=== PATIENT | male | born 1950 | race Caucasian/White ===

== ENCOUNTER → 2023-10-25 09:12 | Outpatient (REF) | payer MEDICARE, OTHER, SELFPAY | LOC: HWRCS 09:12 | PROVIDERS: ATTENDING PHYSICIAN Internal Medicine; FAMILY PHYSICIAN Family Medicine | DX: I65.21 Occlusion and stenosis of right carotid artery (principal); I10 Essential (primary) hypertension; G45.9 Transient cerebral ischemic attack, unspecified; I45.10 Unspecified right bundle-branch block | CPT/HCPCS: 93306 ==

== ENCOUNTER 2024-05-13 10:10 | Emergency (ER) | payer MEDICARE, OTHER, SELFPAY ==
[2024-05-13 10:13] VITALS: BP 193/95
--- NOTE | 2024-05-13 12:08 | ED.GENMED ---
History of Present Illness
General
Chief Complaint: Musculo-Skeletal Complaint
Time Seen by Provider: 05/13/24 10:50
History of Present Illness
History of Present Illness:
73-year-old male presents to the emergency department for evaluation of left flank pain after a fall 2 days ago. Fell on his patio onto concrete. Having increasing pain since that time. Pain is pleuritic and worse when attempting to sit up from a
supine position. Denies any ecchymosis. Not on blood thinners. No hematuria.
Past History
Past History
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 Hypertension, diabetes, colon cancer with colostomy and chemotherapy.)
ED Past Surgical History: Other (herniorrhaphy; rectal cancer resection)
Social History
Tobacco: Non-smoker
Alcohol: None
Drug: None
Personal:
Living: with family
Employment: Retired
Family History
Family History: Hypertension
Review of Systems
Review of Systems
Allergies reviewed?: Yes
All Other Systems: ROS reviewed and negative except as documented in HPI and ROS
Phy Exam
Physical Exam
Physical Exam:
GEN: Well appearing, NAD, WDWN
HEENT: Oral mucosa moist, no scleral icterus
Cardiac: Regular rate
Lung: No respiratory distress, no tachypnea, lungs clear to auscultation bilaterally
Abdomen: Soft with no tenderness anteriorly, marked tenderness to the left flank, posterior costovertebral angle, no crepitus or ecchymosis
MSK: No gross deformity or injuries
Skin: Good color, no pallor or jaundice, no rashes
Neuro: AO x3, moves all extremities freely
Psych: Calm, cooperative
Course
Orders/Labs/Results
Orders:
Orders
05/13/24 12:07
CT Abd/Pel (IV only)-[facility] only Urgent
Comment:
Reason For Exam: L flank injury eval for rib fx/renal hematoma
05/13/24 12:24
Basic Metabolic Panel Urgent
Complete Blood Count/No Diff Urgent
05/13/24 14:17
Acetaminophen [Tylenol] 650 mg PO NOW STA
Lidocaine [Lidocaine 4% Patch] 1 patch TOPICAL NOW STA
Apply Lidocaine patch(s) to:: L ribs
Abnormal Lab Results
05/13/24
12:24
MCH 31.8 H pg
(27.0-31.0)
Glucose 313 H mg/dl
(70-99)
05/13/24 12:24
05/13/24 12:24
Vital Signs
Initial and Last Documented VS:
Initial Vital Signs
Temp Pulse Resp BP Pulse Ox
97.9 F 79 18 193/95 97
05/13/24 10:13 05/13/24 10:13 05/13/24 10:13 05/13/24 10:13 05/13/24 10:13
Last Documented Vital Signs
Temp Pulse Resp BP Pulse Ox
97.9 F 68 18 171/82 99
05/13/24 10:13 05/13/24 14:36 05/13/24 14:36 05/13/24 14:36 05/13/24 14:36
MDM/Problems Addressed
MDM/Problems Addressed:
Imaging reveals an isolated 11th rib fracture with no associated organ internal injuries. Discussed supportive care, provided with incentive spirometry
*Critical Care Note
Total Time (30-74mins, 75-104mins- exclusive of procedures): Not Applicable
ED Attending Note
-
Portions of this chart may have been created with voice recognition software.� Occasional wrong word or��sound alike� substitutions may have occurred due to the inherent limitations of voice recognition software.
Discharge Plan
Departure
Patient Disposition: Home (Routine Discharge)
Date of Disposition: 05/13/24
Time of Disposition: 14:33
Patient with high blood pressure during this ER visit?: No
Discharge Problem:
Left rib fracture
Instructions: Rib Fracture
Prescriptions:
New
oxycodone-acetaminophen [Percocet] 5-325 mg tablet
1 tab PO Q6HPRN PRN (Reason: pain) Qty: 10 0RF
No Action
aspirin 81 MG tablet,delayed release (DR/EC)
162 mg PO DAILY
glipizide 5 MG tablet extended release 24hr
10 mg PO DAILY
metformin 1,000 MG tablet
1,000 mg PO BID@0800,1700
atorvastatin 40 MG tablet
40 mg PO QPM Qty: 30 0RF
Rx Instructions:
NEW MED
lisinopril 20 MG tablet
40 mg PO HS Qty: 30 0RF
Rx Instructions:
NEW DOSE
Referrals:
Maryjane Rueda DO [Family Provider] -
Interventions
Interventions:
*Risk Screen - Suicide Last Done: 05/13/24 10:16
*General Assessment Last Done: 05/13/24 12:40
*Neglect/Abuse Screening Last Done: 05/13/24 10:16
*ED COVID-19 Vaccine History Last Done: 05/13/24 12:40
*Nursing Disposition Last Done: 05/13/24 14:52
ED-Musculoskeletal Assessment Last Done: 05/13/24 12:40
Discharge Date and Time
Discharge Date/Time: 05/13/24 14:52
Print Language: AUSTRALIAN
[2024-05-13 12:40] VITALS: BP 184/80
[2024-05-13 12:53] LABS: Hematocrit 47.1 % (39.0-52.0); Hemoglobin 16.1 g/dL (13.0-18.0); Mean Corp Hgb Conc. 34.2 g/dL (33.0-37.0); Mean Corpuscular Hgb 31.8 pg (27.0-31.0); Mean Corpuscular Volume 92.9 fL (80.0-94.0); Red Blood Cell Count 5.07 10^6/uL (4.70-6.10); Red Cell Dist. Width 12.8 % (11.5-14.5); White Blood Cell Count 7.7 10^3/uL (4.8-10.8)
[2024-05-13 12:58] LABS: Blood Urea Nitrogen 16 mg/dl (9-20); Calcium 8.9 mg/dl (8.4-10.2); Carbon Dioxide 24 mmol/L (22-30); Chloride 102 mmol/L (98-107); Glucose 313 mg/dl (70-99); Sodium 138 mmol/L (135-145); eGFR > 60.00
[2024-05-13] MEDS: LIDOCAINE 4% PATCH 1 PATCH TOPICAL (14:31)
[2024-05-13] MEDS: TYLENOL 650 MG PO (14:31)
[2024-05-13 14:36] VITALS: BP 171/82
== END 2024-05-13 14:52 | disposition home or self-care (01) ==
LOC: EMR 10:10
PROVIDERS: Physician Assistant; EMERGENCY PHYSICIAN Emergency Medicine; FAMILY PHYSICIAN Family Medicine
DX: S22.32XA Fracture of one rib, left side, initial encounter for closed fracture (principal); W19.XXXA Unspecified fall, initial encounter
CPT/HCPCS: 99285; 74177; 80048; 85027; Q9967